=== PATIENT | female | born 1985 | race Caucasian/White ===

== ENCOUNTER 2024-03-26 09:56 | Observation (INO) | payer OTHER, SELFPAY ==
--- NOTE | ~2024-03-26 | CT_ITS ---
EXAMINATION: CT abdomen pelvis w con DATE: 03/26/2024 10:46 INDICATION: Lower abdominal pain post hysterectomy TECHNIQUE: Computed tomography (CT) of the abdomen and pelvis was performed with 100 mL Omnipaque-350 intravenous contrast. Automated exposure control and iterative reconstruction technique were employe d. The dose-length product was 1389.16 mGy-cm. COMPARISON: None FINDINGS: Linear discoid atelectasis at the bilateral lower lobes. Heart size is normal. No pericardial or pleu ral effusion. 6 mm low-attenuation hepatic cyst in the left hepatic lobe. Focal hepatic steatosis cinthya ng the ligamentum teres. Gallbladder, spleen, pancreas, bilateral adrenal glands and bilateral adrena l glands are normal. No bowel obstruction. The uterus is not identified and has likely been surgicall y resected. 5.0 x 4.7 cm loculated rim-enhancing fluid collection at the uterine fossa which could re present a postoperative hematoma or abscess in the appropriate clinical setting. Additional 2 cm diam eter rim-enhancing fluid collection more anteriorly in the right hemipelvis near the termination of t he right gonadal vessels which could represent an additional small abscess, hematoma or right adnexal cyst. There are some bladder wall thickening which could be due to the partially decompressed state however there is also some stranding in the fat surrounding the bladder also raising the possibility of cystitis. No free intraperitoneal gas. No pathologically enlarged abdominal or pelvic lymphadenopa thy. Small fat-containing umbilical hernia with mild stranding along the inferior margin of the umbil icus likely represent postoperative change related to laparoscopy port. Transitional L5 segment which is sacralized on the right. IMPRESSION: 1. Postoperative change of recent hysterectomy with 5.0 x 4.7 cm rim-enhancing fluid collection at th e uterine fossa which could represent a postoperative hematoma or abscess in the proper clinical sett ing. 2. Additional 2 cm rim-enhancing fluid collection more anteriorly in the right hemipelvis which could represent additional hematoma, abscess or adnexal cyst. Reviewed, dictated and finalized at location A. IMPRESSION: 1. Postoperative change of recent hysterectomy with 5.0 x 4.7 cm rim-enhancing fluid collection at the uterine fossa which could represent a postoperative hem atoma or abscess in the proper clinical setting. 2. Additional 2 cm rim-enhancing fluid collection more anteriorly in the right hemipelvis which could represent additional hematoma, abscess or adnexal cyst.
[2024-03-26 10:04] VITALS: BP 137/93; PULSE 90; RESP 15; TEMP 36.4; O2SAT 100
--- NOTE | 2024-03-26 10:04 | ED.GENADULT ---
HPI - General Adult General Chief complaint: Urogenital-Female Stated complaint: UTI Time Seen by Provider: 03/26/24 10:01 History of Present Illness HPI narrative: Patient is a 38-year-old female who presents ER with lower abdominal discomfort. She underwent surgery on 03/15/2024 in [facility]. She had a hysterectomy performed laparoscopically. Over last few days she has been developing lower abdominal pain. She has also had leaking from her vagina that she is unsure if it is urine or discharge. No bleeding. No fevers or chills or sweats. Referred here by her PCP. Related Data Home Medications Medication Instructions Recorded Confirmed atorvastatin 80 mg tablet 80 mg PO DAILY 03/26/24 03/26/24 cholecalciferol (vitamin D3) 1,250 50,000 unit PO WEEKLY 03/26/24 03/26/24 mcg (50,000 unit) capsule Allergies Allergy/AdvReac Type Severity Reaction Status Date / Time No Known Allergies Allergy Verified 03/26/24 15:09 Review of Systems Review of Systems: All systems reviewed & are unremarkable except as noted in HPI and below Constitutional: Constitutional: Reports no additional constitutional complaints ENT: Reports system reviewed and no additional complaints, except as documented Cardiovascular: Cardiovascular: Reports no additional cardiovascular complaints Respiratory: Respiratory: Reports no additional respiratory complaints Gastrointestinal: Gastrointestinal: Reports no additional gastrointestinal complaints PMFSH Past Medical History Medical History (Updated 03/26/24 @ 18:58 by Fawad Turner MD) Endometriosis Surgical History Surgical History (Updated 03/26/24 @ 18:55 by Fawad Turner MD) History of hysterectomy Social History Social History Smoking status: Never smoker Alcohol intake: never Substance use: never Substance use type: does not use Do You Feel Safe in your Home?: Yes Lack of Transportation: No Lack of Food: Never True Current Housing: I Have Housing Concerned About Future Housing: No Difficulty Paying Gas/Electric Bills: No Difficulty Paying for Meds: No Currently Unemployed: No Education: Don't Know Difficulty w/ Childcare or Family Care: No Spiritual care concerns: No Exam Narrative: GENERAL: Well-appearing, well-nourished, and in no acute distress. HEAD: Normocephalic, atraumatic. ENT: Mucous membranes moist. CHEST: Clear to auscultation. No respiratory distress. HEART: Regular rate and rhythm. Normal peripheral pulses. ABDOMEN: Soft, nontender, nondistended. PELVIC: Surgical cuff identified and no large dehiscence. Malodorous clear fluid coming from the vagina. No blood. EXTREMITIES: Normal range of motion. No edema. SKIN: Warm, dry, no rash. NEURO: Alert and oriented x3. PSYCH: Normal mood and affect. Course Course Emergency Course: Discussed with Dr. Hopper, admit, start IV Unasyn. Pt aware of dx and tx plan Vital Signs Vital signs: Vital Signs Temperature 97.5 F L 03/26/24 10:04 Pulse Rate 90 03/26/24 10:04 Respiratory Rate 15 03/26/24 10:04 Blood Pressure 137/93 H 03/26/24 10:04 Pulse Oximetry 100 03/26/24 10:04 Temperature 98.1 F 03/26/24 14:00 Pulse Rate 72 03/26/24 14:00 Respiratory Rate 18 03/26/24 14:00 Blood Pressure 128/84 03/26/24 14:00 Pulse Oximetry 100 03/26/24 14:00 Medical Decision Making Vital Signs Vital Signs: Vital Signs Temperature 97.5 F L 03/26/24 10:04 Pulse Rate 90 03/26/24 10:04 Respiratory Rate 15 03/26/24 10:04 Blood Pressure 137/93 H 03/26/24 10:04 Pulse Oximetry 100 03/26/24 10:04 Temperature 98.1 F 03/26/24 14:00 Pulse Rate 72 03/26/24 14:00 Respiratory Rate 18 03/26/24 14:00 Blood Pressure 128/84 03/26/24 14:00 Pulse Oximetry 100 03/26/24 14:00 Lab Data 03/26/24 10:29 03/26/24 10:39 Labs: Lab Results 03/26/24 03/26/24 Range/Units 1
[2024-03-26 10:27] VITALS: BP 123/89; PULSE 85; RESP 16; O2SAT 100
[2024-03-26 10:36] LABS: Basophils Percent Auto 0.3 % (0.2-1.2); Eosinophils Absolute Auto 0.4 K/mm3 (0-0.3); Eosinophils Percent Auto 4.5 % (0-4.4); Hematocrit 39.2 % (37.0-47.0); Hemoglobin 12.7 g/dL (12.0-15.0); Immature Granulocyte Absolute 0.04 K/mm3 (0.00-0.031); Immature Granulocyte Percent A 0.4 % (0-0.5); Lymphocytes Absolute Auto 1.36 K/mm3 (0.9-3.2); Lymphocytes Percent Auto 13.9 % (18.3-44.2); Mean Corpuscular HGB Conc 32.4 g/dl (32-36); Mean Corpuscular Volume 92.5 fl (80-100); Mean Platelet Volume 9.9 fl (7.4-10.4); Monocytes Absolute Auto 0.7 K/mm3 (0.1-0.6); Monocytes Percent Auto 6.9 % (2.6-8.5); Neutrophils Absolute Auto 7.2 K/mm3 (1.3-6.7); Platelet Count Result 330 k/mm3 (150-375); Red Blood Count 4.24 M/mm3 (4.2-5.4); Red Cell Distribution Width 15.2 % (11.5-14.5); White Blood Count 9.8 K/mm3 (4.5-10.0)
[2024-03-26 10:40] LABS: Add Urine Microscopic? YES; Appearance Urine Clear (Clear); Bacteria Urine None Seen /hpf; Bilirubin Urine Negative (Negative); Blood Urine 2+ (Negative); Color Urine Yellow (Yellow); Glucose Urine UA Negative (Negative); Ketones Urine 2+ mg/dL (Negative); Leukocyte Esterase Ur 2+ LEU/UL (Negative); Nitrate Urine Negative (Negative); Non Pathogenic Casts 0-2; Protein Urine Trace mg/dL (Negative); Specific Grav Ur 1.019 (1.001-1.035); Squamous Epithelial Cell Urine None Seen /hpf (Few); Urobilinogen Urine 0.2 mg/dL (<2.0); WBC Urine 21-50 /hpf (0-3)
[2024-03-26 10:41] LABS: Estimated CRCL calculation 131 ml/min; Estimated Glomerular Filt Rate > 60
[2024-03-26 10:51] LABS: Alanine Aminotransferase 30 U/L (6-35); Albumin Level 4.2 g/dL (3.5-5.1); Alkaline Phosphatase 91 U/L (38-126); Anion Gap 7 mmol/L (4-12); Aspartate Amino Transferase 24 U/L (14-36); Bilirubin,Total 0.6 mg/dL (0.2-1.3); Blood Urea Nitrogen 9 mg/dL (7-17); Calcium 9.2 mg/dL (8.4-10.2); Carbon Dioxide 28 mmol/L (22-30); Chloride 103 mmol/L (98-107); Estimated CRCL calculation 131 ml/min; Estimated Glomerular Filt Rate > 60; Glucose 86 mg/dL (65-110); Lipase 82 U/L (23-300); Potassium 3.6 mmol/L (3.4-5.0); Sodium 138 mmol/L (137-145)
[2024-03-26 11:24] VITALS: BP 121/81; PULSE 88; RESP 16; O2SAT 100
[2024-03-26] MEDS: KETOROLAC 15 MG/ML VIAL (*BKC) IV PUSH (12:10)
[2024-03-26 12:14] VITALS: BP 140/90; PULSE 85; RESP 14; O2SAT 100
--- NOTE | 2024-03-26 12:45 | ADMGEN ---
This patient, Myrtle Browne, was admitted to [facility] Surg Room 310-01. Patient/family oriented to hospital policies and general routines including ID bracelet, bed and alarms, visiting hours, pain management, procedures, bathroom and other care routines, personal items, smoking policy, room service/diet, and visiting hours. Information on how to activate the Rapid Response Team has been discussed. Patient/Family are encouraged to report perceived risks to care and to ask questions if they do not understand what they are told or what they should do.
[2024-03-26] MEDS: AMPICILLIN SULB 3 GM/NS 100 ML 3 GM/100 ML VIAL IVPB ×3 (12:48→23:57)
[2024-03-26 14:00] VITALS: BP 128/84; PULSE 72; RESP 18; TEMP 36.7; O2SAT 100
[2024-03-26] MEDS: HYDROcodone/acetaminophen (*CRX) 5-325 MG TABLET 1 TAB PO (17:40)
--- NOTE | 2024-03-26 19:07 | PM.IMHP ---
H&P: HPI History of Present Illness Date/Time: 03/26/24 19:07 Chief Complaint: Burning with urination Narrative: 38 y/o who had what sounds like an LAVH in [place], [place], 11 days ago for irregular bleeding and pain. 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 She had excision of a vaginal septum at age 18. She had a delivery as well. A few days ago she developed burning with urination and new onset urinary incontinence. No fever. No GI sxs. She saw her PCP who checked a UA and told her she ought to head to the ED for a CT. CT shows a 5 cm rim enhancing fluid collection in the pelvis, and an additional 2 cm fluid collection in the right hemipelvis. Review of Systems Review of Systems: All systems reviewed & are unremarkable except as noted in HPI and below PMFSH Past Medical History Medical History (Updated 03/26/24 @ 19:14 by Fox Hopper MD) Endometriosis Hyperlipidemia Surgical History Surgical History History of hysterectomy Social History Social History Smoking status: Never smoker Alcohol intake: never Substance use: never Substance use type: does not use Do You Feel Safe in your Home?: Yes Lack of Transportation: No Lack of Food: Never True Current Housing: I Have Housing Concerned About Future Housing: No Difficulty Paying Gas/Electric Bills: No Difficulty Paying for Meds: No Currently Unemployed: No Education: Don't Know Difficulty w/ Childcare or Family Care: No Spiritual care concerns: No Meds Home Medications and Allergies Home Medications Medication Instructions Recorded Confirmed Type atorvastatin 80 mg tablet 80 mg PO DAILY 03/26/24 03/26/24 History cholecalciferol (vitamin D3) 1,250 50,000 unit PO WEEKLY 03/26/24 03/26/24 History mcg (50,000 unit) capsule Allergies Allergy/AdvReac Type Severity Reaction Status Date / Time No Known Allergies Allergy Verified 03/26/24 15:09 Vital Signs Vital Signs - 24 hr 03/26/24 10:04 03/26/24 10:27 03/26/24 11:24 Temperature 36.4 C L Pulse Rate 90 85 88 Respiratory Rate 15 16 16 Blood Pressure 137/93 H 123/89 121/81 Pulse Oximetry 100 100 100 03/26/24 12:14 03/26/24 14:00 Temperature 36.7 C Pulse Rate 85 72 Respiratory Rate 14 18 Blood Pressure 140/90 128/84 Pulse Oximetry 100 100 Exam Const: Orientation/consciousness: patient oriented x3 Other: Well-developed, well-nourished female in no acute distress. Neck: Thyroid: thyroid normal Lymphatic: no lymphadenopathy noted (in neck, axilla or inguinal nodes) Resp: Effort & Inspection: normal respiratory effort Auscultation: clear to auscultation bilaterally Cardio: Rate: regular rate Rhythm: regular rhythm Heart sounds: S1 normal heart sound present and S2 normal heart sound present GI: Other: ABD: Soft, nontender, nondistended. No guarding or rebound tenderness. No hepatosplenomegaly. Incision c/d/i. : Other: Deferred. Back/Spine/Pelvis: Back: no CVA tenderness Skin: General skin exam: normal color and no rashes or lesions noted Neuro: General: patient oriented x3 Extrem: Other: Extremities: nontender with no edema Psych: Mental Status: mental status grossly normal Affect: normal affect H&P: Results Labs Labs: Short CBC 03/26/24 Range/Units 10:29 WBC 9.8 (4.5-10.0) K/mm3 Hgb 12.7 (12.0-15.0) g/dL Hct 39.2 (37.0-47.0) % Plt Count 330 (150-375) k/mm3 BMP 03/26/24 03/26/24 10:29 10:39 Sodium 138 Potassium 3.6 Chloride 103 Carbon Dioxide 28 BUN 9 Creatinine 0.60 L 0.60 L Glucose 86 Calcium 9.2 Liver Function 03/26/24 Range/Units 10:29 Total Bilirubin 0.6 (0.2-1.3) mg/dL AST 24 (14-36) U/L ALT 30 (6-35) U/L Alkaline Phosphatase 91 (38-126) U/L Albumin 4.2
[2024-03-26 20:22] VITALS: BP 134/89; PULSE 91; RESP 14; TEMP 36.3; O2SAT 98
[2024-03-27 05:11] VITALS: BP 107/69; PULSE 81; RESP 14; TEMP 36.8; O2SAT 99
[2024-03-27] MEDS: AMPICILLIN SULB 3 GM/NS 100 ML 3 GM/100 ML VIAL IVPB ×2 (05:12→11:28)
[2024-03-27 06:31] LABS: Basophils Absolute Auto 0.1 K/mm3 (0.0-0.1); Basophils Percent Auto 0.6 % (0.2-1.2); Eosinophils Absolute Auto 0.6 K/mm3 (0-0.3); Eosinophils Percent Auto 6.3 % (0-4.4); Hematocrit 33.4 % (37.0-47.0); Hemoglobin 10.6 g/dL (12.0-15.0); Immature Granulocyte Absolute 0.03 K/mm3 (0.00-0.031); Immature Granulocyte Percent A 0.3 % (0-0.5); Lymphocytes Absolute Auto 1.43 K/mm3 (0.9-3.2); Lymphocytes Percent Auto 16.4 % (18.3-44.2); Mean Corpuscular HGB Conc 31.7 g/dl (32-36); Mean Corpuscular Volume 91.5 fl (80-100); Monocytes Absolute Auto 0.7 K/mm3 (0.1-0.6); Neutrophils Percent Auto 68.4 % (45.5-73.1); Platelet Count Result 259 k/mm3 (150-375); Red Blood Count 3.65 M/mm3 (4.2-5.4); Red Cell Distribution Width 15.1 % (11.5-14.5); White Blood Count 8.7 K/mm3 (4.5-10.0)
[2024-03-27 08:59] VITALS: O2SAT 97
--- NOTE | 2024-03-27 12:55 | PM.GYNPNOP ---
SUPERVISOR OPERATIONS - A/P Time Spent With Patient Time with patient: 15 - 25 minutes SUPERVISOR OPERATIONS- PN:Subj Post-Op Subjective Date/time seen: 03/27/24 11:55 Dysuria has improved. She still has low pelvic pain, just to the right of midline, that bothers her especially with urination. She has not required pain medicine since last night. No fevers. Tolerating diet. AVSS ABD soft, with mild tenderness in low quadrants to deep palpation. No guarding or rebound. Umbilical incision clean, dry and intact. EXT: nontender A: POD#12 s/p likely LAVH in [place]. Now with cystitis, pelvic fluid collection at the vaginal cuff. Normal WBC and afebrile, so pelvic abscess is not suspected. Urine culture is still pending. Clinically she has improved since yesterday. 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 SUPERVISOR OPERATIONS - PN: Obj Data Vital Signs Vital Signs: Vital Signs - 24 hr 03/26/24 14:00 03/26/24 20:22 03/26/24 20:00 Temperature 36.7 C 36.3 C L Pulse Rate 72 91 Respiratory Rate 18 14 Blood Pressure 128/84 134/89 Pulse Oximetry 100 98 Oxygen Delivery Room Air 03/27/24 05:11 03/27/24 08:00 03/27/24 08:59 Temperature 36.8 C Pulse Rate 81 Respiratory Rate 14 Blood Pressure 107/69 Pulse Oximetry 99 97 Oxygen Delivery Room Air Room Air Intake/Output Intake/Output: Intake & Output 03/24/24 03/25/24 03/26/24 03/27/24 23:59 23:59 23:59 23:59 Intake Total 2230 1160 Balance 2230 1160 Meds/Results Medications: Active Medications Generic Name Dose Route Start Last Admin Trade Name Freq PRN Reason Stop Dose Admin Acetaminophen 650 mg 03/26/24 12:05 Acetaminophen 325 Mg Tablet PO Q4H PRN Mild Pain (1-3) or Fever Hydrocodone Bitart/Acetaminophen 1 tab 03/26/24 12:05 03/26/24 17:40 Hydrocodone/Acetaminophen (*Crx) 5-325 Mg Tablet PO 1 tab Q4H PRN Administration Pain Rated 4-6 Ampicillin Sodium/Sulbactam Sodium 3 gm in 100 mls @ 200 mls/hr 03/26/24 18:00 03/27/24 11:58 Unasyn 3 Gm/Ns 100 Ml IVPB Infused Q6HR ANKITA Infusion Morphine Sulfate 2 mg 03/26/24 12:05 Morphine Sulfate (*Crx) 2 Mg/Ml Inj IV PUSH Q2H PRN Pain Rated 7-10 Ondansetron HCl 4 mg 03/26/24 12:05 Ondansetron Inj 4 Mg/2 Ml Vial IV PUSH Q4H PRN Nausea Radiology Results: ITS Impressions Abdomen/Pelvis CT 03/26/24 10:49 IMPRESSION: 1. Postoperative change of recent hysterectomy with 5.0 x 4.7 cm rim-enhancing fluid collection at the uterine fossa which could represent a postoperative hematoma or abscess in the proper clinical setting. 2. Additional 2 cm rim-enhancing fluid collection more anteriorly in the right hemipelvis which could represent additional hematoma, abscess or adnexal cyst. Labs 03/27/24 06:07 03/26/24 10:39 Labs: Laboratory Results - last 24 hr 03/27/24 06:07 WBC 8.7 RBC 3.65 L Hgb 10.6 L Hct 33.4 L MCV 91.5 MCH 29.0 MCHC 31.7 L RDW 15.1 H Plt Count 259 MPV 10.0 Immature Gran % (Auto) 0.3 Neut % (Auto) 68.4 Lymph % (Auto) 16.4 L [place] % (Auto) 8.0 Eos % (Auto) 6.3 H Baso % (Auto) 0.6 Lymph # (Auto) 1.43 [place] # (Auto) 0.7 H Eos # (Auto) 0.6 H Baso # (Auto) 0.1 Abs Immat Gran (auto) 0.03 Absolute Neuts (auto) 6.0 Absolute Nucleated RBC 0.000 Nucleated RBC % 0.0
--- NOTE | 2024-03-27 13:05 | PM.DS ---
DS: Admitting Diagnosis Discharge Date 03/27/24 Admitting Diagnosis Postop pelvic pain DS: Discharge Diagnosis Discharge Diagnosis (1) UTI (urinary tract infection): Code(s): N39.0 - Urinary tract infection, site not specified Status: Acute DS: Summary Hospital Course Hospital Course: 38 y/o POD#11 [place]. She had dysuria, new onset urinary incontinence. CT showed a 5 cm fluid collection in the pelvis, but she remained afebrile and had a normal WBC count. She was admitted to the hospital for IV antibiotics and observation. Pain improved and she was able to go home on oral antibiotic and analgesics. The urine culture is still pending. F/u in 1 week. Time Spent with Patient Time attestation: Total time spent providing and/or coordinating discharge services: DS: Data Data Completed and Pending Labs on day of discharge: Labs from last 24 hours 03/27/24 06:07 WBC 8.7 RBC 3.65 L Hgb 10.6 L Hct 33.4 L MCV 91.5 MCH 29.0 MCHC 31.7 L RDW 15.1 H Plt Count 259 MPV 10.0 Immature Gran % (Auto) 0.3 Neut % (Auto) 68.4 Lymph % (Auto) 16.4 L [place] % (Auto) 8.0 Eos % (Auto) 6.3 H Baso % (Auto) 0.6 Lymph # (Auto) 1.43 [place] # (Auto) 0.7 H Eos # (Auto) 0.6 H Baso # (Auto) 0.1 Abs Immat Gran (auto) 0.03 Absolute Neuts (auto) 6.0 Absolute Nucleated RBC 0.000 Nucleated RBC % 0.0 Preliminary micro results at discharge 03/26/24 13:05 Blood Culture - Preliminary Blood 03/26/24 12:29 Blood Culture - Preliminary Blood Discharge Plan Discharge Attending physician on discharge: Fox Hopper Discharging Clinician: Fox Hopper Patient Disposition: Home, Self-Care Activity: may shower and pelvic rest Diet: regular Wound Care Instructions: incision open to air Discharge Instructions: Nothing in the vagina for 4 weeks. Call or return if temperature above 100.4? F, increased abdominal pain, increased vaginal bleeding or any new problems. 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
[2024-03-27] MEDS: INFLUENZA TRIVALENT VACCINE 45 MCG/0.5 ML SYRINGE IM (13:44)
== END 2024-03-27 14:15 | disposition home or self-care (01) ==
LOC: ANHED 11:03 → ANH3MEDSUR 12:32
PROVIDERS: Admitting Provider Obstetrics & Gynecology; Emergency Provider Emergency Medicine; PCP Internal Medicine; Visit Provider Obstetrics & Gynecology
DX: N30.90 Cystitis, unspecified without hematuria (principal); G89.18 Other acute postprocedural pain; Z90.710 Acquired absence of both cervix and uterus; E78.5 Hyperlipidemia, unspecified; Z23 Encounter for immunization; Z79.899 Other long term (current) drug therapy
CPT/HCPCS: 36415; 74177; 80053; 81001; 83690; 85025; 87040; 87086; 90471; 90656; 96365; 96375; 96376; 99285; A9270; G0008; G0378; J0295; J1885; Q9967